=== PATIENT | male | born 1965 | race Caucasian/White ===

== ENCOUNTER 2018-07-17 18:51 | Emergency (ER) | payer OTHER ==
--- NOTE | 2018-07-17 19:45 | ED Physician Documentation ---
History of Present Illness - Stated complaint Stated Complaint: BLOOD PRESSURE - Chief complaint Chief Complaint: Cardiac - History obtained from History obtained from: Patient, Family - History of Present Illness Timing: Chronic Pain level max: 0 Pain level now: 0 Improved by: nothing Worsened by: nothing - Additonal information Additional information: Patient is a 53 year old male who presents to the Emergency Department with c/o high blood pressure. Patient states that he has history of essential hypertension and is currently visiting from [place]. States he has felt his blood pressure was high for the past 7 days. states they leave for home tomorrow and he has an appointment with his PCP on 07/19/2018. Review of Systems Ten Systems: 10 systems reviewed and negative Constitutional: denies: Fever, Chills Eyes: denies: Loss of vision, Decreased vision Ears: denies: Ear pain Nose: denies: Rhinorrhea / runny nose, Congestion Throat: denies: Sore throat Cardiac: denies: Chest pain / pressure, Palpitations Respiratory: denies: Dyspnea, Cough, Wheezing GI: denies: Abdominal Pain, Vomiting Skin: denies: Rash Musculoskeletal: denies: Neck pain, Back pain Neurologic: denies: Headache PD PAST MEDICAL HISTORY - Past Medical History Past Medical History: Yes Cardiovascular: Hypertension Other Past Medical History: MS - Past Surgical History Past Surgical History: Yes - Allergies Allergies/Adverse Reactions: Allergies Allergy/AdvReac Type Severity Reaction Status Date / Time No Known Drug Allergies Allergy Verified 07/17/18 19:05 - Social History Does the pt smoke?: No Smoking Status: Never smoker Does the pt drink ETOH?: No Does the pt have substance abuse?: No - Immunizations Immunizations are current?: Yes - POLST Patient has POLST: No PD ED PE NORMAL - Vitals Vital signs reviewed: Yes - General General: Alert and oriented X 3 - HEENT HEENT: PERRL, Moist mucous membranes - Neck Neck: Supple, no meningeal sign - Cardiac Cardiac: RRR - Respiratory Respiratory: No respiratory distress, Clear bilaterally - Abdomen Abdomen: Soft, Non tender, Non distended - Derm Derm: Warm and dry - Neuro Neuro: Alert and oriented X 3, heater worker 2-12 intact, No motor deficit, No sensory deficit - Psych Psych: Normal mood, Normal affect Results - Vitals Vitals: Vital Signs - 24 hr 07/17/18 07/17/18 07/17/18 18:56 19:42 20:01 Temperature 36.4 C L Heart Rate 77 78 Respiratory 14 18 18 Rate Blood Pressure 190/90 H 183/98 H 176/93 H O2 Saturation 99 98 100 Oxygen O2 Source Room air PD MEDICAL DECISION MAKING - ED course Complexity details: considered differential, d/w patient ED course: Patient is a 53-year-old male who presents to the emergency department with asymptomatic hypertension. Has a long-standing history of hypertension. His blood pressure decreased on its own in the emergency department. We will have him follow-up with his doctor for further care. Patient and family counseled regarding signs and symptoms for which I believe and urgent re-evaluation would be necessary. Patient with good understanding of and agreement to plan and is comfortable going home at this time This document was made in part using voice recognition software. While efforts are made to proofread this document, sound alike and grammatical errors may occur. - Sepsis Event Vital Signs: Vital Signs - 24 hr 07/17/18 07/17/18 07/17/18 18:56 19:42 20:01 Temperature 36.4 C L Heart Rate 77 78 Respiratory 14 18 18 Rate Blood Pressure 190/90 H 183/98 H 176/93 H O2 Saturation 99 98 100 Oxygen O2 Source Room air Departure - Departure Disposition: 01 Home, Self Care Clinical Impression: Hypertension Qualifiers: Hypertension type: unspecified Qualified Code(s): I10 - Essential (primary) hypertension Condition: Good Instructions: ED HTN Established Follow-Up: your,doctor in 1 week [Other] Comments: Continue your medications at home. Follow up with your doctor for further care. Keep a log of your blood pressure at home to take with you. Return if you develop chest pain, shortness of breath, headache, numbness or tingling. Discharge Date/Time: 07/17/18 20:01
[2018-07-17 20:02] VITALS: BP 176/93
== END 2018-07-17 20:01 | disposition home or self-care (01) ==
LOC: ED 18:51
DX: I10 Essential (primary) hypertension (principal)
CPT/HCPCS: 99282; 99283